=== PATIENT | male | born 1975 | race Caucasian/White ===

== ENCOUNTER 2020-04-25 16:34 | Emergency (ER) | payer BC ==
[2020-04-25] MEDS ORDERED: KETOROLAC TROMETHAMINE INJ 30 MG/ML VIAL IM ONE (16:41)
--- NOTE | 2020-04-25 16:44 | ED.PDOC ---
History of Present Illness - General Time Seen by Provider: 04/25/20 16:41 Source: patient, RN notes reviewed, Vital Signs reviewed - History of Present Illness Initial Comments: Patient with no medical problems presents to the ER because of left knee pain, patient was working with a cow when he was check on the knee, patient arrived POV walking with a steady gait but does have evidence of a bruise and hematoma in the medial aspect of the left knee, patient is a smoker Occurred: just prior to arrival Pain - Lower Extremity: moderate: Left Knee Improving Factors: other - hit by a cow Worsening Factors: nothing Allergies/Adverse Reactions: Allergies NO KNOWN ALLERGY Allergy (Verified 04/25/20 16:44) Home Medications: Ambulatory Orders Cephalexin [Keflex] 500 mg PO QID #28 cap 10/18/15 Ibuprofen [Motrin Tab] 600 mg PO Q8H PRN #15 tab 10/18/15 Acetaminophen W/ Codeine [Tylenol W/ CODEINE #3] 1 ea PO Q6HRS #20 ea 04/25/20 Review of Systems - Review of Systems Constitutional: States: no symptoms reported EENTM: States: no symptoms reported Respiratory: States: no symptoms reported Cardiology: States: no symptoms reported Gastrointestinal/Abdominal: States: no symptoms reported Genitourinary: States: no symptoms reported Skin: States: no symptoms reported Neurological: States: no symptoms reported Endocrine: States: no symptoms reported Hematologic/Lymphatic: States: no symptoms reported Past Medical History (General) - Patient Medical History Hx Congestive Heart Failure: No Hx Diabetes: No - Vaccination History Hx Tetanus, Diphtheria Vaccination: Yes Hx Influenza Vaccination: Yes Hx Pneumococcal Vaccination: No - Social History Hx Tobacco Use: Yes Hx Chewing Tobacco Use: No Hx Alcohol Use: Yes - rarely Hx Substance Use: No Hx Substance Use Treatment: No Hx Depression: No Hx Physical Abuse: No Hx Emotional Abuse: No Hx Suspected Abuse: No - Female History Patient : No Family Medical History - Family History Father Family History: No Known Physical Exam - Physical Exam General Appearance: Well Developed, Well Groomed, Well Hydrated, Well Nourished Eyes, Ears, Nose, Throat: PERRL/EOMI, TMs normal Neck: non-tender, full range of motion, supple Cardiovascular/Respiratory: regular rate, rhythm, no M/R/G, normal peripheral pulses, no JVD, normal breath sounds, no respiratory distress Gastrointestinal/Abdominal: non-tender, no organomegaly Thigh/Hip: normal inspection, non-tender, no evidence of injury, normal ROM Leg: normal inspection, non-tender, no evidence of injury, normal ROM Ankle: soft tissue tenderness, swelling, other - left knee bruise Foot: normal inspection, non-tender, no evidence of injury, normal ROM Neuro/Tendon: normal sensation, normal motor functions, normal tendon functions, responds to pain, no evidence tendon injury Mental Status: alert, oriented x 3 Skin: normal color Progress - Progress Progress: Patient presenting with left knee pain after he was hit by a cow, patient was able to ambulate does not be in any distress, I did see some swelling in the medial aspect of the knee with some bruises, negative anterior drawer sign, patient x-ray did not show any fracture or dislocation but there is evidence of some tissue swelling, I discussed with this patient that to investigate any damage to the knee in terms of black any soft tissue injury including ligaments he will need to get an MRI so we will refer him to orthopedic surgeon, and I will put him on a knee immobilizer and I instructed him to keep the leg elevated. 04/25/20 17:15 Departure - Departure Clinical Impression: Knee pain Qualifiers: Chronicity: acute Laterality: left Qualified Code(s): M25.562 - Pain in left knee Disposition: Discharge to Home or Self Care Condition: Fair Instructions: Knee Sprain (DC) Diet: resume usual diet Referrals: Mike Bernal MD [Active Staff] - 1-2 Weeks Vladimir Arredondo MD [Active Staff] - 1-2 Weeks Prescriptions: Acetaminophen W/ Codeine [Tylenol W/ CODEINE #3] 1 ea PO Q6HRS #20 ea Home Medications: Ambulatory Orders Cephalexin [Keflex] 500 mg PO QID #28 cap 10/18/15 Ibuprofen [Motrin Tab] 600 mg PO Q8H PRN #15 tab 10/18/15 Acetaminophen W/ Codeine [Tylenol W/ CODEINE #3] 1 ea PO Q6HRS #20 ea 04/25/20
[2020-04-25 17:20] VITALS: BP 121/73; TEMP 98.3; O2SAT 97
--- NOTE | 2020-04-25 17:24 | RAD ---
EXAM: XR Left Knee, 2 Views CLINICAL HISTORY: trauma TECHNIQUE: Frontal and lateral views of the left knee. COMPARISON: No relevant prior studies available. FINDINGS: Bones/joints: No abnormality noted. No acute fracture. No dislocation. Soft tissues: Mild soft tissue swelling noted medial to the femur. IMPRESSION: Mild soft tissue swelling noted medial to the femur. No fracture. Electronically signed by: Dariela Vargas MD 04/25/2020 5:22 PM [facility]
== END 2020-04-25 17:37 | disposition home or self-care (01) ==
LOC: ER 16:34
DX: S80.02XA Contusion of left knee, initial encounter (principal); W55.22XA Struck by cow, initial encounter; F17.200 Nicotine dependence, unspecified, uncomplicated; Y93.89 Activity, other specified; Y92.9 Unspecified place or not applicable
CPT/HCPCS: 73560; J1885

== ENCOUNTER → 2020-05-06 | Outpatient (CLI) | payer BC ==
--- NOTE | 2020-05-06 14:04 | RAD ---
EXAM DESCRIPTION: Wrist,Right 3 Views CLINICAL HISTORY: 45 years, Male, PAIN IN RIGHT WRIST COMPARISON: None FINDINGS: Right wrist three x-ray views. Mild degenerative changes at the lateral carpus, first carpal metacarpal joint and at the heads of the second and third metacarpals. No fracture. No dislocation. Normal overall bony mineralization. Carpal relationships are well-maintained. Distal radius and ulna appear intact. Normal metacarpals. No significant arthritic changes are observed. IMPRESSION: Mild degenerative arthritic changes as described. Negative for fracture or dislocation. Electronically signed by: Flavio Johnson MD 05/06/2020 2:03 PM [facility]
== END ==
LOC: RAD 09:42
PROVIDERS: ATTEND Orthopaedic Surgery
DX: M19.031 Primary osteoarthritis, right wrist (principal)

== ENCOUNTER → 2020-06-07 | Outpatient (CLI) | payer BC ==
--- NOTE | 2020-06-09 09:05 | MRI ---
MRI left knee without contrast INDICATION: Knee pain post injury 2019 TECHNIQUE: Noncontrast MR imaging left knee FINDINGS: There is a region of up to grade 4 chondrosis in the medial patellar facet with mild subchondral edema. The overall area measures 8 mm in diameter. Surface chondrosis grade 2-3 midline trochlea axial series 301 image 22. Quadricep and patellar tendon are intact. Mild prepatellar and superficial infrapatellar bursal edema. ACL and PCL are intact. Mild degenerative signal in both menisci. Small vertical fissure to the undersurface body medial meniscus coronal series 601 image 22 concerning for a small developing undersurface tear nondisplaced. There is also chondrosis up to grade 3 relatively horizontal with a small vertical component coronal series 601 image 21 medial femoral condyle. No fracture or focal destructive lesion. 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
== END ==
LOC: MRI 07:48
PROVIDERS: ATTEND Orthopaedic Surgery
DX: S83.242A Other tear of medial meniscus, current injury, left knee, initial encounter (principal); S80.02XD Contusion of left knee, subsequent encounter; M94.262 Chondromalacia, left knee